=== PATIENT | female | born 1960 | race Caucasian/White ===

== ENCOUNTER 2017-01-16 16:08 | Emergency (ER) | payer BC ==
[~2017-01-16] VITALS: Ht 167.6 cm; Wt 99.8 kg
[~2017-01-16 16:08] MED LIST: CIPRO 500MG TA500 MG PO; EFFEXOR XR 75MG75 MG PO; GABAPENTIN300 MG PO; IBUPROFEN800 MG PO; PREDNISONE 20MG20 MG PO; TESSALON PERLE100 MG PO; VENLAFAXINE HC100 MG PO; [UNRECOGNIZED DRUG - OTHER]
--- NOTE | 2017-01-16 16:20 | Emergency Room Report ---
History of Present Illness Time Seen by [id number] Presenting Problem in Triage Pt arrived:Walked Presenting Problem:PRESENTS FOR CONTINUED SOA. PT HAS BEEN SEEN IN ED AND AT PCP ([facility]EZ[facility] IN [place], [place]) AND FINISHED STEROIDS, AND 3 DAYS LEFT ON ATB. 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 N Clinical Suspician of Infection? N Mental Status: 1 - Regular (Normal Baseline) Sepsis Risk:Possible Sepsis Risk Have you (or family members/close friends) recently traveled outside the [facility]? N If Yes, where/when: Have you had exposure to infectious disease within the past month? TB? Other? Specify: Comment The patient complains of cough and shortness of breath. She was seen in this emergency room 9 days ago for the same complaints. She was diagnosed with "a touch of pneumonia". She was started on antibiotics and steroids. She says that she saw her family physician for follow-up one week ago and was prescribed more steroids and Levaquin. She finished her steroids yesterday and has 3 days of Levaquin to go. She says that today she feels worse after feeling improved for the past 2 days. She is feeling short of breath, hot and flushed, weak and drained. She still has a productive cough. She has had diarrhea this week. She has a nebulizer at home but has not used it the past couple of days because she was working, did not have time, and was actually starting to feel better. She had a low-grade fever the first couple of days, but none since. ALLERGIES Coded Allergies: No Known Allergies (01/16/17) Home Medications Active Scripts Ciprofloxacin HCl (Cipro 500MG TAB) 500 MG PO BID #14 TAB Prov: 01/08/17 Prednisone (Prednisone 20MG) 20 MG PO BID #10 TAB Prov: 01/08/17 BENZONATATE (Benzonatate) 100 MG PO TID #15 CAP Prov: 01/08/17 Reported Medications VENLAFAXINE HCL (Effexor 100MG (GEQ)) 100 MG PO DAILY Venlafaxine Hydrochloride (Effexor XR 75MG) 75 MG PO DAILY Ibuprofen (Ibuprofen 800MG) 800 MG PO TID [SUBSOFT] 4.5 MG DAILY Gabapentin (Gabapentin 300MG) 300 MG PO TID History Medical History General CAD? No Angina: No [place]: No Hypertension? No Hyperlipidemia? No CHF? No DVT? No PE? No COPD? No Asthma? No Anemia? No GERD? No Gastric ulcers? No GI Bleed? No Hernia? No Thyroid Problems? No Hypothyroidism? No CVA? No Seizures? No Diabetes? No Renal Insuffiency? No End Stage Renal Disease? No UTI? No Stones? No BPH? No GB Disease: No Nephritic Syndrome? No Asplenia? No Hepatitis? No Sickle Cell Disease? No Arthritis? Yes Migraines? No Cataracts? No Glaucoma? No MRSA? No HIV? No TB? No Anxiety? No Depression? Yes Cancer? No More? 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 N/A Social History Smoking Hx Smoker: Current Every Day Smoker Tobacco: Yes Type Cigarettes Packs/day < 1 Pack Are you/the child exposed to second-hand smoke: No Alcohol Alcohol: No Review of Systems All Other Systems Reviewed and Negative Constitutional malaise, weakness Respiratory cough, shortness of breath, wheezing Gastrointestinal diarrhea Physical Exam Vital Signs Vital Signs Date Time Temp Pulse Resp B/P Pulse O2 O2 Flow FiO2 Ox Delivery Rate 01/16 1713 63 20 148/64 98 01/16 1612 98.0 110 22 154/77 98 General Appearance normal appearance, WD/WN Eye Exam - bilateral eye normal exam, bilateral eye PERRL, bilateral eye EOMI Ear, Nose, Throat hearing grossly normal, normal ENT inspection, pharynx normal Neck normal inspection, non-tender, supple, full range of motion Respiratory Status Yes: trachea midline, chest symmetrical, productive cough. No: respiratory distress. Lung Sounds bilateral: normal breath sounds, lungs clear. 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 No Results/Orders Laboratory Tests 01/16/17 1635: Sodium 138, Potassium 3.4 L, Chloride 100, Carbon Dioxide 31, BUN 13, Creatinine 1.0, Estimated Creat Clear 100, Estimated GFR (MDRD) 58 L, Glucose 128 H, Calcium 9.4, Total Bilirubin 0.3, AST 8 L, ALT 22, Alkaline Phosphatase 82, Total Protein 7.8, Albumin 3.5, Globulin 4.3 H, Albumin/Globulin Ratio 0.8 L, WBC 15.2 H, RBC 4.97, Hgb 15.2, Hct 44.7, MCV 90.0, RDW 13.7, Plt Count 303, MPV 7.0 L, Gran % 71.8, Gran # 10.9 H, Total Counted Pending, Lymphocytes % 21.0, Monocytes % 5.7, Eosinophils % 1.1, Basophils % 0.4, Neutrophils Pending, Lymphocytes (Manual) Pending, Lymphocytes # 3.2, Monocytes # 0.9, Eosinophils # 0.2, Basophils # 0.1, Platelet Estimate Pending, PUBS MCHC 33.9, MCH 30.5 Current Medication Orders Sig/Chanell Start time Last Medication Dose Route Stop Time Status Admin Albuterol/Ipratropium 0 .STK-MED ONE 01/16 1639 DC INH Sodium Chloride 1,000 ML .STK-MED ONE 01/16 1637 DC IV Methylprednisolone 0 .STK-MED ONE 01/16 1636 DC Sodium Succinate .ROUTE Albuterol/Ipratropium 3 ML ONCE ONE 01/16 1630 DC 01/16 INH 01/16 1631 1639 Methylprednisolone 125 MG ONCE ONE 01/16 1630 DC 01/16 Sodium Succinate IV 01/16 163 1638 Sodium Chloride 10 ML PRN PRN 01/16 1630 AC IV 01/17 1626 Sodium Chloride 1,000 ML .Q1H1M 01/16 1630 DC 01/16 IV 01/16 1730 1638 Orders Procedure Date/time Status ELECTROCARDIOGRAM REQUEST 01/16 1712 Active DIFFERENTIAL-WBC 01/16 1635 Active RT REQUEST DUONEB 01/16 1627 Active CHEST(2 VIEWS-NOT PORTABLE) 01/16 1626 Active IV SALINE LOCK 01/16 162 Active CBC WITH AUTO DIFF 01/16 162 Active CHEM 12 PROFILE 01/16 162 Complete CM/EKG CM/EKG Comments EKG interpreted by Justice Damon MD: Rhythm: sinus Rate: 84 [place]: normal Ectopy: none Conduction: normal ST Segment Changes: none T Wave Changes: none Q Waves: none No evidence of acute ischemia or injury Baseline artifact present, but I consider the EKG adequate for accurate interpretation. Normal electrocardiogram XRAY/CT/US XRAY/CT/US XRAY chest Comment X-ray interpreted by Justice Damon M.D.: no acute disease, LEFT basilar atelectasis or infiltrate on previous exam appears to have resolved. Progress - 5:40 PM: The patient is improved after nebulizer treatment and steroids. She feels well enough to be discharged. Departure Departure Disposition DC Home or Self Care(routine) Clinical Impression Primary Impression: Acute bronchitis Qualifiers: Bronchitis organism: unspecified organism Qualified Code: J20.9 - Acute bronchitis, unspecified Condition STABLE Referrals [facility] (Family) Patient Instructions DI for Acute Bronchitis Additional Instructions Off work until Sunday01/20/17. Finish your prescription for Levaquin. Use your nebulizer 4 times a day. Additional instructions for ACUTE BRONCHITIS: Use Tylenol or Ibuprofen for pain or fever. Rest and plenty of fluids. Return immediately if you have an uncontrollable fever greater than 102 degrees, severe headache or neck stiffness, difficulty breathing or shortness of breath, persistent vomiting, severe sore throat or inability to swallow. See your physician if not improving in 4-5 days. Prescriptions Current Visit Scripts Benzonatate (Tessalon Perle) 100 MG PO TID #15 SGL Prednisone (Prednisone 10MG) 10 MG PO DAILY #27 TAB 6 po on days 1-2, then decrease dose by 1 pill per day until gone ED Critical Care Critical Care No at [id number]
--- OUTSIDE RECORDS SUMMARY | 2017-01-16 16:21 | External Medical Summary Rpt ---
Author Author [facility] [employer] Address Unknown Phone Unavailable Results Lactate [Moles/volume] in Blood Observa Value Referen Units Interpr Notes Date tion ce etation Range Lactate 0.4 - 2.0 mmol/L Normal No January 07 [Moles/vo informati 2016 lume] in on in 11:35 PM Blood source data CBC W Auto Differential panel in Blood Observa Value Referen Units Interpr Notes Date tion ce etation Range Basophils 0 - 0.2 K/MM3 Normal No January 07 inform2016 [#/volume on in 11:35 PM ] in source Blood by data Automated count Basophils 0.1 - 2.0 % Normal No January 07 /2016 leukocyte on in 11:35 PM s in source Blood by data Automated count Eosinophi 0.0 - 0.4 K/mm3 Normal No January 07 ls informati 2016 [#/volume on in 11:35 PM ] in source Blood by data Automated count Eosinophi 0.1 - % Normal No January 07 ls/100 12.0 inform2016 leukocyte on in 11:35 PM s in source Blood by data Automated count Granulocy 1.8 - 7.8 K/mm3 High No January 07 amanuel inform2016 [#/volume on in 11:35 PM ] in source Blood by data Automated count Granulocy 37.0 - % Normal No January 07 amanuel/100 80.0 2016 leukocyte on in 11:35 PM s in source Blood by data Automated count Hematocri 37.0 - % Normal No January 07 t [Volume 47.0 informati 2016 on in 11:35 PM Fraction] source of Blood data Hemoglobi 12.2 - g/dL Normal No January 07 n 16.2 inform2016 [Mass/vol on in 11:35 PM ume] in source Blood data Lymphocyt 0.7 - 4.5 K/mm3 Normal No January 07 es 2016 [#/volume on in 11:35 PM ] in source Unspecifi data ed specimen by Automated count Lymphocyt 10 - 50.0 % Normal No January 07 es informati 2017 [#/volume on in 11:35 PM ] in source Unspecifi data ed specimen by Automated count Erythrocy 27 - 31.2 pg Normal No January 07 te mean inform2016 corpuscul on in 11:35 PM ar source hemoglobi data n [Entitic mass] Erythrocy 31.8 - g/dl Normal No January 07 te mean 35.4 inform2016 corpuscul on in 11:35 PM ar source hemoglobi data n concentra tion [Mass/vol ume] by Automated count Erythrocy 82.2 - fl Normal No January 07 te mean 97.8 informati 2016 corpuscul on in 11:35 PM ar volume source [Entitic data volume] by Automated count Monocytes 0.1 - 1.0 K/mm3 Normal No January 07 inform2016 [#/volume on in 11:35 PM ] in source Blood by data Automated count Monocytes 1.7 - 9.3 % Normal No January 07 /100 inform2016 leukocyte on in 11:35 PM s in source Blood by data Automated count Platelet 7.4 - fl Low No January 07 mean 10.4 informati 2016 volume on in 11:35 PM [Entitic source volume] data in Blood by Automated count Platelets 142 - 424 K/mm3 Normal No January 07 informati 2016 [#/volume on in 11:35 PM ] in source Blood data Erythrocy 4.2 - 5.4 M/mm3 Normal No January 07 amanuel informati 2016 [#/volume on in 11:35 PM ] in source Amniotic data fluid Erythrocy 11.5 - % Normal No January 07 te 17.5 informati 2016 distribut on in 11:35 PM ion width source [Entitic data volume] by Automated count Leukocyte 4.8 - K/MM3 High No January 07 s 10.8 informati 2016 [#/volume on in 11:35 PM ] in source Blood data
--- OUTSIDE RECORDS SUMMARY | 2017-01-16 16:21 | External Medical Summary Rpt ---
Demographics Preferred Language Czech Marital Status Unknown Amish Affiliation Unknown Race Unknown Ethnic Group Unknown Author Author , Organization [employer] Address Unknown Phone Unavailable Purpose Continuity of Care Document - through 2016 Immunization No patient found.
--- OUTSIDE RECORDS SUMMARY | 2017-01-16 16:21 | External Medical Summary Rpt ---
Author Author , Organization [employer] Address Unknown Phone Unavailable Purpose Continuity of Care Document - through 2016 Problems Code Diagnosis DOS Provider Status J18.9 PNEUMONIA, UNSPECIFIED ORGANISM
--- OUTSIDE RECORDS SUMMARY | 2017-01-16 16:21 | External Medical Summary Rpt ---
Demographics Preferred Language Hebrew Marital Status Unknown Muslim Affiliation Unknown Race Unknown Ethnic Group Unknown Author Author , Organization [employer] Address Unknown Phone Unavailable Purpose Continuity of Care Document - through 2016 Immunization No patient found.
[2017-01-16 16:47] LABS: LYMPH # 3.2 K/mm3 (0.7-4.5)
[2017-01-16 16:54] LABS: HEMOGLOBIN 15.2 g/dL (12.2-16.2)
[2017-01-16] MEDS ORDERED: PREDNISONE 10MG10 MG PO (17:46)
[2017-01-16] MEDS ORDERED: TESSALON PERLE100 M1 PO (17:46)
[2017-01-16 17:50] VITALS: BP 148/64
--- NOTE | 2017-01-16 18:56 | RADIOLOGY REPORT PS360 ---
CHEST(2 VIEWS-NOT PORTABLE) HISTORY: cough ORDERING PHYSICIAN: Justice Damon MD PATIENT AGE: 56 years COMPARISON: 01/08/2017 FINDINGS: The cardiomediastinal silhouette and pulmonary vascularity are within normal limits. The lungs are clear without infiltrates, suspicious nodules, or pleural effusions. No acute bony abnormalities. IMPRESSION: Negative chest, no acute finding
[2017-01-16 19:08] LABS: NEUTROPHILS 65 % (42-76)
== END 2017-01-16 17:51 | disposition home or self-care (01) ==
LOC: ER 16:08
PROVIDERS: Emergency Medicine
DX: J20.9 Acute bronchitis, unspecified (principal); Z72.0 Tobacco use